=== PATIENT | male | born 1995 | race American Indian/Alaskan Native ===

== ENCOUNTER 2016-11-25 11:16 | Emergency (ER) | payer MEDICAID, OTHER ==
[2016-11-25 11:18] VITALS: BMI 29.7
[2016-11-25 11:22] VITALS: RESP 18
--- NOTE | 2016-11-25 11:29 | ED PDOC ---
Arrival/HPI - General Chief Complaint: Abdominal Pain Time Seen by Provider: 11/25/16 11:26 Historian: Patient - History of Present Illness Narrative History of Present Illness (Text): 11/25/16 11:26 21 y/o male, no significant pmh, nkda, c/o lt. sided abdominal pain x 3 days. Pt. stated that the pain is sudden onset, sharp sensation, lt. flank traveling to the lt. sided abdominal, feels distended, no nausea or vomiting, no fever or chills, no diarrhea, no palpitation, no rash, no other medical or psychological complaints. Past Medical History - Provider Review Nursing Documentation Reviewed: Yes - Infectious Disease Hx of Infectious Diseases: None - Psychiatric Hx Substance Use: No - Anesthesia Hx Anesthesia: No Family/Social History - Physician Review Nursing Documentation Reviewed: Yes Family/Social History: Unknown Family HX Smoking Status: Never Smoked Hx Alcohol Use: No Hx Substance Use: No Allergies/Home Meds Allergies/Adverse Reactions: Allergies No Known Allergies Allergy (Verified 11/25/16 11:18) Review of Systems - Review of Systems Constitutional: absent: Fatigue, Fevers Eyes: absent: Vision Changes ENT: absent: Hearing Changes Respiratory: absent: SOB, Cough Cardiovascular: absent: Chest Pain Gastrointestinal: Abdominal Pain. absent: Diarrhea, Nausea, Vomiting Musculoskeletal: absent: Arthralgias, Back Pain Skin: absent: Rash, Pruritis, Skin Lesions Neurological: absent: Headache, Dizziness, Focal Weakness Physical Exam Vital Signs Reviewed: Yes Vital Signs Temp Pulse Resp BP Pulse Ox 11/25/16 15:42 98.0 F 78 18 136/76 98 11/25/16 14:08 89 18 150/86 100 11/25/16 11:20 98.1 F 64 18 154/102 H 98 Temperature: Afebrile Blood Pressure: Hypertensive Pulse: Regular Respiratory Rate: Normal Appearance: Positive for: Well-Appearing, Non-Toxic Pain Distress: Severe Mental Status: Positive for: Alert and Oriented X 3 - Systems Exam Head: Present: Atraumatic, Normocephalic Pupils: Present: PERRL Extroacular Muscles: Present: EOMI Conjunctiva: Present: Normal Mouth: Present: Moist Mucous Membranes Neck: Present: Normal Range of Motion Respiratory/Chest: Present: Clear to Auscultation, Good Air Exchange. No: Respiratory Distress, Accessory Muscle Use Cardiovascular: Present: Regular Rate and Rhythm, Normal S1, S2. No: Murmurs Abdomen: Present: Tenderness (lt. sided abdomen), Normal Bowel Sounds. No: Distention, Peritoneal Signs, Guarding Back: Present: Normal Inspection, CVA Tenderness (+lt. cva). No: Midline Tenderness, Paraspinal Tenderness, Pain with Leg Raise Upper Extremity: Present: Normal Inspection. No: Cyanosis, Edema Lower Extremity: Present: Normal Inspection. No: Edema Neurological: Present: GCS=15, Speech Normal, Gait Normal, Memory Normal Skin: Present: Warm, Dry, Normal Color. No: Rashes Psychiatric: Present: Alert, Oriented x 3, Normal Insight, Normal Concentration Medical Decision Making ED Course and Treatment: 11/25/16 11:36 -labs/ua -CT abdomen and pelvis -IVF/toradol -Observe and reasses 11/25/16 13:51 -Pt. feels pain, morphine ordered. 11/25/16 14:24 -Pt. feels pain, dilaudid and reglan ordered. 11/25/16 15:54 -Labs are non-significant -UA show no UTI but there is +hematuria -CT Abdomen and pelvis show no acute findings -I checked the [facility] which the patient has no prescription prescribed for controlled substances. -Pain controlled, relief, will discharge home. -Discharge home with percocet, stay hydrated, bed rest, follow up with your own pmd within 2 days, return to the ER for any new or worsening signs or symptoms. - Lab Interpretations Lab Results: 11/25/16 12:20 11/25/16 12:20 Lab Results 11/25/16 13:25: Urine Color Yellow, Urine Appearance Sl cloudy, Urine pH 7.5, Ur Specific [place] 1.025, Urine Protein Negative, Urine Glucose (UA) Negative, Urine Ketones Negative, Urine Blood Moderate H, Urine Nitrate Negative, Urine Bilirubin Negative, Urine Urobilinogen 0.2, Ur Leukocyte Esterase Negative, Urine RBC 10 - 15, Urine WBC Negative 11/25/16 12:20: Sodium 147, Potassium 4.3, Chloride 105, Carbon Dioxide 29, Anion Gap 17, BUN 13, Creatinine 0.8, Est GFR ( Amer) > 60, Est GFR (Non- Af Amer) > 60, Random Glucose 99, Calcium 9.6, Total Bilirubin 0.7, AST 72 H, ALT 63 H, Alkaline Phosphatase 68, Total Protein 8.5 H, Albumin 5.2 H, Globulin 3.3, Albumin/Globulin Ratio 1.6, Lipase 46 11/25/16 12:20: WBC 5.9, RBC 5.40, Hgb 15.9, Hct 45.6, MCV 84.4, MCH 29.4, MCHC 34.9, RDW 12.7, Plt Count 256, MPV 9.9, Gran % 58.9, Lymph % (Auto) 32.7, [place] % (Auto) 7.3 H, Eos % (Auto) 0.9 L, Baso % (Auto) 0.2, Gran # 3.46, Lymph # 1.9 , [place] # 0.4, Eos # 0.1, Baso # 0.01 11/25/16 12:16: D-Dimer, Quantitative 0.19 I have reviewed the lab results: Yes Interpretation: Abnormal lab values (+hematuria) - RAD Interpretation Radiology Orders: 11/25/16 11:34 ABDOMEN & PELVIS [ABD & PELVIS IV CONTRAST ONLY] [CT] Stat FINDINGS: LOWER THORAX: Unremarkable. LIVER: Unremarkable. No gross lesion or ductal dilatation. GALLBLADDER AND BILE DUCTS: Unremarkable. PANCREAS: Unremarkable. No gross lesion or ductal dilatation. SPLEEN: Unremarkable. ADRENALS: Unremarkable. No mass. KIDNEYS AND URETERS: Unremarkable. No hydronephrosis. No solid mass. VASCULATURE: Unremarkable. No aortic aneurysm. BOWEL: Unremarkable. No obstruction. No gross mural thickening. APPENDIX: Normal appendix. PERITONEUM: Unremarkable. No free fluid. No free air. LYMPH NODES: Unremarkable. No enlarged lymph nodes. BLADDER: Unremarkable. REPRODUCTIVE: Unremarkable. BONES: No acute fracture. OTHER FINDINGS: None. IMPRESSION: Unremarkable contrast enhanced CT of the abdomen and pelvis. Solar Process Engineer: Radiologist - Medication Orders Current Medication Orders: Sodium Chloride (Sodium Chloride 0.9%) 1,000 mls @ 500 mls/hr IV .Q2H IVETTE Last Admin: 11/25/16 14:30 Dose: 500 mls/hr Discontinued Medications Hydromorphone HCl (Dilaudid) 1 mg IVP STAT STA Stop: 11/25/16 14:12 Last Admin: 11/25/16 14:29 Dose: 1 mg Sodium Chloride (Sodium Chloride 0.9%) 1,000 mls @ 999 mls/hr IV .Q1H1M STA Stop: 11/25/16 12:34 Last Admin: 11/25/16 12:18 Dose: 999 mls/hr Iohexol (Omnipaque 350 100 Ml) Confirm Administered Dose 350 mg .ROUTE .STK-MED ONE Stop: 11/25/16 13:05 Ketorolac Tromethamine (Toradol) 30 mg IVP STAT STA Stop: 11/25/16 11:35 Last Admin: 11/25/16 12:19 Dose: 30 mg Re-Assess: [facility] Pain Assessment Document 11/25/16 13:19 GMD (Rec: 11/25/16 14:20 GMD [id number]) Pain Reassessment Is this a pain reassessment? Yes Sleep Is patient sleeping during reassessment? No Presence of Pain Presence of Pain Yes Pain Scale Used Pain Scale Used Numeric Description Intensity of Pain at present 5 Metoclopramide HCl (Reglan) 10 mg IVP STAT STA Stop: 11/25/16 14:12 Last Admin: 11/25/16 14:30 Dose: 10 mg Morphine Sulfate (Morphine) 4 mg IVP STAT STA Stop: 11/25/16 12:45 Last Admin: 11/25/16 12:56 Dose: 4 mg Re-Assess: [facility] Pain Assessment Document 11/25/16 13:56 GMD (Rec: 11/25/16 14:20 GMD [id number]) Pain Reassessment Is this a pain reassessment? Yes Sleep Is patient sleeping during reassessment? 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 Disposition/Present on Arrival - Present on Arrival Any Indicators Present on Arrival: No History of DVT/PE: No History of Uncontrolled Diabetes: No Urinary Catheter: No History of Decub. Ulcer: No History Surgical Site Infection Following: None - Disposition Have Diagnosis and Disposition been Completed?: Yes Diagnosis: Abdominal pain, Hematuria Disposition: HOME/ ROUTINE Disposition Time: 14:25 Patient Plan: Discharge Condition: IMPROVED Additional Instructions: -Discharge home with percocet, stay hydrated, bed rest, follow up with your own pmd within 2 days, return to the ER for any new or worsening signs or symptoms. Prescriptions: oxyCODONE/Acetaminophen [Percocet 5/325 mg Tab] 1 tab PO TID PRN #8 tab PRN Reason: Other Referrals: PCP,NO [Primary Care Provider] - Follow up with primary Patel Wei MD [Staff Provider] - Follow up with primary Krzysztof Colvin MD [Staff Provider] - Follow up with primary Forms: [facility] ([place]), WORK NOTE
[2016-11-25] MEDS ORDERED: Sodium Chloride 0.9% 1,000 ML IV STA (11:34)
[2016-11-25 12:38] LABS: BASO # 0.01 K/mm3 (0.0-2.0); BASO % 0.2 % (0.0-3.0); EOS # 0.1 (0.0-0.7); EOS % 0.9 % (1.5-5.0); GRAN # 3.46 (1.4-6.5); GRAN % 58.9 % (50.0-68.0); HEMATOCRIT 45.6 % (42.0-52.0); LYMPH # 1.9 (1.2-3.4); LYMPH % 32.7 % (22.0-35.0); MEAN CELL VOLUME 84.4 fl (80.0-105.0); MEAN CORPUSCULAR HEMOGLOBIN 29.4 pg (25.0-35.0); MEAN CORPUSCULAR HGB CONC 34.9 g/dl (31.0-37.0); MEAN PLATELET VOLUME 9.9 fl (7.0-11.0); MONO # 0.4 (0.1-0.6); MONO % 7.3 % (1.0-6.0); RED CELL DISTRIBUTION WIDTH 12.7 % (11.5-14.5); WHITE BLOOD COUNT 5.9 10^3/ul (4.5-11.0)
[2016-11-25 12:43] LABS: ALB/GLOB RATIO 1.6 (1.1-1.8); ALKALINE PHOSPHATASE 68 U/L (38-133); ALT/SGPT 63 U/L (7-56); AST/SGOT 72 U/L (15-59); BILIRUBIN,TOTAL 0.7 mg/dL (0.2-1.3); BLOOD UREA NITROGEN 13 mg/dL (7-21); CALCIUM 9.6 mg/dL (8.4-10.5); CARBON DIOXIDE 29 mmol/L (21-33); CHLORIDE 105 mmol/L (98-107); GFR AFRICAN-AMERICAN > 60; GLUCOSE,RANDOM 99 mg/dL (70-110); LIPASE 46 U/L (23-300); POTASSIUM 4.3 mmol/L (3.6-5.0); SODIUM 147 mmol/L (132-148); TOTAL PROTEIN 8.5 g/dL (5.8-8.3)
[2016-11-25] MEDS ORDERED: Morphine 4 mg/ml ISec IVP STA (12:44)
[2016-11-25] MEDS ORDERED: Iohexol 350 MG/100 ML VIAL ONE (13:04)
[2016-11-25 13:34] LABS: PH,URINE 7.5 (4.7-8.0); URINE BILIRUBIN NEGATIVE (NEGATIVE); URINE BLOOD MODERATE (NEGATIVE); URINE GLUCOSE (UA) NEGATIVE (NEGATIVE); URINE KETONE NEGATIVE (NEGATIVE); URINE LEUKOCYTE ESTERASE NEGATIVE Leu/uL (NEGATIVE); URINE PROTEIN NEGATIVE mg/dL (<30 mg/dL); URINE UROBILINOGEN 0.2 E.U./dL (<1 E.U./dL)
[2016-11-25 13:36] LABS: URINE APPEARANCE SL CLOUDY (CLEAR); URINE COLOR YELLOW (YELLOW)
[2016-11-25 13:43] LABS: URINE WBC NEGATIVE /hpf (0-6)
[2016-11-25] MEDS ORDERED: HYDROmorphone 1 mg/ml ISec IVP STA (14:11)
[2016-11-25] MEDS ORDERED: Sodium Chloride 0.9% 1,000 ML IV SCH (14:15)
--- NOTE | 2016-11-25 14:23 | CT ---
PROCEDURE: CT Abdomen and Pelvis with contrast HISTORY: lt. sided abdominal pain x 3 days COMPARISON: None. TECHNIQUE: Contrast dose: 100 cc of Omni 350 Radiation dose: Total exam DLP = 843 mGy-cm. This CT exam was performed using one or more of the following dose reduction techniques: Automated exposure control, adjustment of the mA and/or kV according to patient size, and/or use of iterative reconstruction technique. FINDINGS: LOWER THORAX: Unremarkable. LIVER: Unremarkable. No gross lesion or ductal dilatation. GALLBLADDER AND BILE DUCTS: Unremarkable. PANCREAS: Unremarkable. No gross lesion or ductal dilatation. SPLEEN: Unremarkable. ADRENALS: Unremarkable. No mass. KIDNEYS AND URETERS: Unremarkable. No hydronephrosis. No solid mass. VASCULATURE: Unremarkable. No aortic aneurysm. BOWEL: Unremarkable. No obstruction. No gross mural thickening. APPENDIX: Normal appendix. PERITONEUM: Unremarkable. No free fluid. No free air. LYMPH NODES: Unremarkable. No enlarged lymph nodes. BLADDER: Unremarkable. REPRODUCTIVE: Unremarkable. BONES: No acute fracture. OTHER FINDINGS: None. IMPRESSION: Unremarkable contrast enhanced CT of the abdomen and pelvis.
[2016-11-25 15:43] VITALS: BP 136/76; PULSE 78; TEMP 98; O2SAT 98
== END 2016-11-25 15:59 | disposition home or self-care (01) ==
LOC: ED 11:16
DX: R10.9 Unspecified abdominal pain (principal); R31.9 Hematuria, unspecified
CPT/HCPCS: 74177; 80053; 81001; 83690; 85025; 85378; 96361; 96374; 96375; 99285; J1170; J1885; J2270; J2765; J7040; Q9967